=== PATIENT | male | born 1980 | race African-American/Black ===

== ENCOUNTER → 2017-04-01 | Outpatient (CLI) | payer BC ==
[~2017-04-01] MED LIST: MOTRIN800 MG PO; NORCO 5-325 TA1 EACH PO
== END | disposition home or self-care (01) ==
LOC: LAB 07:34
DX: Z30.8 Encounter for other contraceptive management (principal); Z98.52 Vasectomy status

== ENCOUNTER → 2017-04-08 | Outpatient (CLI) | payer BC | END | disposition home or self-care (01) | LOC: LAB 07:22 | DX: Z98.52 Vasectomy status (principal) ==

== ENCOUNTER 2017-06-26 13:06 | Emergency (ER) | payer BC ==
[~2017-06-26] VITALS: Ht 185.4 cm; Wt 79.4 kg
[2017-06-26] MEDS ORDERED: NAPROSYN500 MG PO (14:11)
== END 2017-06-26 14:14 | disposition home or self-care (01) ==
LOC: ED 13:06
DX: S60.042A Contusion of left ring finger without damage to nail, initial encounter (principal); Z79.899 Other long term (current) drug therapy; X58.XXXA Exposure to other specified factors, initial encounter; Y93.67 Activity, basketball; Y92.89 Other specified places as the place of occurrence of the external cause; Y99.8 Other external cause status

== ENCOUNTER 2018-07-22 19:55 | Emergency (ER) | payer BC ==
[~2018-07-22] VITALS: Ht 185.4 cm; Wt 78.0 kg
[~2018-07-22 19:55] MED LIST changes: +NAPROSYN500 MG PO
[2018-07-22] MEDS ORDERED: Motrin,Rufen800 MG PO (22:19)
== END 2018-07-22 22:30 | disposition home or self-care (01) ==
LOC: ED 19:55
DX: S93.401A Sprain of unspecified ligament of right ankle, initial encounter (principal); S90.31XA Contusion of right foot, initial encounter; Z79.899 Other long term (current) drug therapy; X50.1XXA Overexertion from prolonged static or awkward postures, initial encounter; Y93.67 Activity, basketball; Y92.320 Baseball field as the place of occurrence of the external cause; Y99.8 Other external cause status

== ENCOUNTER 2019-06-26 11:15 | Emergency (ER) | payer BC ==
[~2019-06-26] VITALS: Wt 74.8 kg
[~2019-06-26 11:15] MED LIST changes: +Motrin,Rufen800 MG PO
[2019-06-26] MEDS ORDERED: ANTIBIOTIC28.4 GM T (12:34)
[2019-06-26] MEDS ORDERED: CEPHALEXIN500 M1 PO (12:34)
== END 2019-06-26 13:21 | disposition home or self-care (01) ==
LOC: ED 11:15
DX: S01.411A Laceration without foreign body of right cheek and temporomandibular area, initial encounter (principal); Z23 Encounter for immunization; W22.8XXA Striking against or struck by other objects, initial encounter; Y93.89 Activity, other specified; Y92.89 Other specified places as the place of occurrence of the external cause; Y99.8 Other external cause status

== ENCOUNTER 2024-02-28 00:30 | Emergency (ER) | payer BC ==
[~2024-02-28] VITALS: Ht 187.9 cm; Wt 84.4 kg
[~2024-02-28 00:30] MED LIST changes: +ANTIBIOTIC28.4 GM T; +CEPHALEXIN500 M1 PO
[2024-02-28 01:15] LABS: BASO % 0.7 % (0.0-1.0); EOS # 0.1 10*3/uL (0.0-0.4); EOS % 2.6 % (1.0-4.0); LYMPH # 1.9 10*3/uL (1.3-4.4); LYMPH % 44.9 % (27.0-41.0); MEAN CELL VOLUME 88.5 fl (80.0-94.0); MEAN CORPUSCULAR HGB 29.8 pg (27.0-31.0); MEAN CORPUSCULAR HGB CONC 33.7 g/dl (33.0-37.0); MONO # 0.3 10*3/uL (0.1-1.0); MONO % 6.4 % (3.0-9.0); NEUT # 1.9 10*3/uL (2.3-7.9); NEUT % 44.9 % (47.0-73.0); PLATELET COUNT AUTOMATED 296 10*3/uL (130-400); RED BLOOD COUNT 4.86 10*6/uL (4.50-5.90); RED CELL DISTRI WIDTH 13.2 % (0-14.5); WHITE BLOOD COUNT 4.3 10*3/uL (4.8-10.8)
[2024-02-28 01:26] LABS: ACT PARTIAL THROMBO TIME 29.5 SECONDS (20.0-32.1)
[2024-02-28 01:36] LABS: BUN 12 mg/dl (9-23); CHLORIDE 107 mmol/L (98-107); LIPASE 39 U/L (12-53); POTASSIUM 4.1 mmol/L (3.4-5.1)
[2024-02-28] MEDS ORDERED: VISTARIL25 M2 PO (03:38)
[2024-02-28] MEDS ORDERED: hydrOXYzine pamoate 25 MG CAP PO ONE (03:40)
== END 2024-02-28 03:44 | disposition home or self-care (01) ==
LOC: ED 00:30
PROVIDERS: Internal Medicine
DX: F41.9 Anxiety disorder, unspecified (principal); R07.81 Pleurodynia; Z98.890 Other specified postprocedural states